=== PATIENT | female | born 1975 | race Caucasian/White ===

== ENCOUNTER 2018-09-18 07:11 | Day surgery (SDC) | payer OTHER ==
[~2018-09-18 07:11] MED LIST: ATACAND4 MG PO; VASOTEC5 MG PO
== END 2018-09-18 18:00 | disposition home or self-care (01) ==
LOC: CIR.AMB 07:11
DX: C50.412 Malignant neoplasm of upper-outer quadrant of left female breast (principal)

== ENCOUNTER 2018-10-01 11:40 | Outpatient (CLI) | payer OTHER | END 2018-10-01 11:43 | disposition home or self-care (01) | LOC: SONOGRAMA 11:40 | DX: N61.1 Abscess of the breast and nipple (principal); C50.412 Malignant neoplasm of upper-outer quadrant of left female breast ==

== ENCOUNTER 2021-03-07 05:45 | Day surgery (SDC) | payer OTHER ==
[~2021-03-07 05:45] MED LIST changes: +TAMOXIFEN CITRA20 MG PO
== END 2021-03-07 12:50 | disposition home or self-care (01) ==
LOC: CIR.AMB 05:45
PROVIDERS: ATTEND Obstetrics & Gynecology Maternal & Fetal Medicine
DX: N81.0 Urethrocele (principal); Z20.822 Contact with and (suspected) exposure to COVID-19

== ENCOUNTER 2024-07-12 12:53 | Inpatient (IN) | payer OTHER ==
[~2024-07-12] VITALS: Ht 165.1 cm; Wt 66.7 kg
[2024-07-12 12:44] VITALS: BP 112/69
[2024-07-12 12:50] VITALS: BP 114/71
[2024-07-12 12:59] LABS: HEMATOCRIT 35.1 % (36.0-45.00); MEAN CELL VOLUME 85.8 fL (80.00-100.00); MEAN CORPUSCULAR HEMOGLOBIN 29.4 pg (27.00-32.0); MEAN CORPUSCULAR HGB CONC 34.3 g/dl (32.0-36.0); PLATELET COUNT 226 K/uL (150-450); RED BLOOD COUNT 4.09 M/uL (4.00-6.00)
[2024-07-12 13:26] LABS: INR 1.02; PROTHROMBIN TIME 10.6 SECONDS (9.0-11.5)
[2024-07-12 13:41] LABS: ALBUMIN 3.7 gm/dL (3.4-5.0); BILIRUBIN TOTAL 0.38 mg/dL (0.3-1.2); CALCIUM 8.7 mg/dL (8.5-10.1); CREATININE SERUM 0.93 mg/dL (0.55-1.02); GFR 63.56; GLOBULINA 2.9 G/DL (2.4-3.5); POTASSIUM 3.82 mEq/L (3.5-5.1); TOTAL PROTEIN 6.6 gm/dL (6.4-8.2)
[2024-07-14] MEDS ORDERED: CLINDAMYCIN PHOSPHATE 150 MG/ML (900mg) IV ONE (09:00)
[2024-07-14] MEDS ORDERED: POVIDONE-IODINE 118 ML BOTT TOP ONE (09:15)
[2024-07-14] MEDS ORDERED: ONDANSETRON HCL 4 MG in 0.9 % SODIUM CHLORIDE 50 ML IV PRN (10:00)
[2024-07-14] MEDS ORDERED: ACETAMINOPHEN 500 MG GEL..CAP PO PRN (10:00)
[2024-07-14] MEDS ORDERED: MORPHINE SULFATE 4 MG/ML CARTRIDGE IV PRN (10:00)
[2024-07-14] MEDS ORDERED: MORPHINE SULFATE 4 MG/ML VIAL IV ONE ×2 (10:20→13:25)
[2024-07-14] MEDS ORDERED: KETOROLAC TROMETHAMINE 30 MG VIAL IV ONE (11:15)
[2024-07-14] MEDS ORDERED: KETOROLAC TROMETHAMINE 30 MG VIAL IV SCH (12:00)
[2024-07-14] MEDS ORDERED: GABAPENTIN 300 MG CAPSULE PO SCH (13:00)
[2024-07-14] MEDS ORDERED: CHLORHEXIDINE GLUCONATE 120 ML BOTTLE TOP ONE (15:15)
[2024-07-14 16:32] VITALS: BP 112/69
[2024-07-14] MEDS ORDERED: ENOXAPARIN SODIUM 40 MG/0.4 ML SYRINGE SUBCUTANEO SCH (17:00)
[2024-07-15 01:51] VITALS: BP 100/60
[2024-07-15] MEDS ORDERED: KETOROLAC TROMETHAMINE 10 MG TABLET PO PRN (06:00)
[2024-07-15 06:19] LABS: HEMATOCRIT 27.8 % (36.0-45.00); HEMOGLOBIN 9.8 g/dL (12.0-15.00); MEAN CELL VOLUME 85.7 fL (80.00-100.00); MEAN CORPUSCULAR HEMOGLOBIN 30.3 pg (27.00-32.0); MEAN CORPUSCULAR HGB CONC 35.3 g/dl (32.0-36.0); PLATELET COUNT 173 K/uL (150-450); RED BLOOD COUNT 3.24 M/uL (4.00-6.00)
[2024-07-15 07:01] LABS: ALBUMIN 2.6 gm/dL (3.4-5.0); BILIRUBIN TOTAL 0.28 mg/dL (0.3-1.2); CALCIUM 7.9 mg/dL (8.5-10.1); CREATININE SERUM 0.79 mg/dL (0.55-1.02); GFR 76.72; GLOBULINA 2.2 G/DL (2.4-3.5); POTASSIUM 4.48 mEq/L (3.5-5.1); TOTAL PROTEIN 4.8 gm/dL (6.4-8.2)
[2024-07-15 08:00] VITALS: BP 109/68
[2024-07-15] MEDS ORDERED: IBUprofen 600 MG TABLET PO SCH (08:00)
[2024-07-15] MEDS ORDERED: IRON FUM,PS/FOLIC/BCOMP,C NO.9 1 CAP CAPSULE PO SCH (09:00)
== END 2024-07-15 14:09 | disposition home or self-care (01) | DRG 743 ==
LOC: O/R 07-14 06:46 → OB/GYN 07-14 07:00 → CIR.AMB 07-14 11:38 → EDSTATUS 07-14 11:49 → OB/GYN 07-14 11:50
PROVIDERS: Obstetrics & Gynecology Gynecology; ADMIT Obstetrics & Gynecology Maternal & Fetal Medicine; ATTEND Obstetrics & Gynecology Maternal & Fetal Medicine
PROC: 0UT74ZZ Resection of Bilateral Fallopian Tubes, Percutaneous Endoscopic Approach (ICD-10-PCS; 2024-07-14)
PROC: 0UT24ZZ Resection of Bilateral Ovaries, Percutaneous Endoscopic Approach (ICD-10-PCS; 2024-07-14)
PROC: 0UT94ZZ Resection of Uterus, Percutaneous Endoscopic Approach (ICD-10-PCS; principal; 2024-07-14 07:00)
DX: D25.1 Intramural leiomyoma of uterus (principal); N84.0 Polyp of corpus uteri; N72 Inflammatory disease of cervix uteri; Z20.822 Contact with and (suspected) exposure to COVID-19